=== PATIENT | male | born 1930 | race Caucasian/White ===

== ENCOUNTER 2018-11-20 15:01 | Inpatient (IN) | payer MEDICARE ==
[~2018-11-20] VITALS: Ht 185.4 cm; Wt 97.5 kg
[2018-12-24] VITALS (12 sets, daily range): BP systolic 91–129; BP diastolic 48–83; PULSE 69–97; TEMP 97.3–98.5
[2018-12-24] MEDS ORDERED: FLOMAX 0.40.4 MG/CAP PO (03:35)
[2018-12-24] MEDS ORDERED: ZOCOR 20MG20 MG PO (03:36)
[2018-12-24] MEDS ORDERED: TYLENOL 325MG325 MG PO (03:37)
[2018-12-24] MEDS ORDERED: MULTIPLE VITAMI1 CAP PO (03:38)
[2018-12-24] MEDS ORDERED: MOTRIN 200200 MG/TAB PO (03:39)
[2018-12-24] MEDS ORDERED: ZYRTEC 10MG10 MG PO (05:48)
[2018-12-24] MEDS ORDERED: SINGULAIR 110 MG/TAB PO (05:48)
--- NOTE | 2018-12-24 11:35 | NUR ---
CATE met with the patient's (the patient was in surgery) to discuss a discharge plan. The patient lives in [place] with his . The patient has a walker and is independent with ADLs. The patient's PCP is Dr. Caal and patient receives medication from [facility] in [place] with no difficulties. The patient does not have advanced directives in the EMR but patient's did provide completed paperwork. SW make a copy and placed it in the patients chart. The patient's plan is to return home with . The patient has outpatient physical therapy set up in [place]. The patient's will provide transportation home. banking services clerk will continue to follow to ensure safe discharge.
--- NOTE | 2018-12-24 11:35 | NUR ---
Lying in bed, easily arousable when name called out. Rates pain 2/10 in right knee, explains it feels like it is stiff. Dressing to right knee held in place with MICHEL wrap, clean, dry, and intact. Provided patient with water. Patient denies further needs.
--- NOTE | 2018-12-24 14:27 | NUR ---
Sitting up in bed, awake and alert. Rates pain 2/10 in right knee. Dressing clean, dry, and intact. Family in room talking with the patient. Patient was able to eat small lunch without any difficulties. Denies further needs at this time.
--- NOTE | 2018-12-24 20:15 | NUR ---
Pt. laying in bed with at bedside. Pt. is A&OX3, assessment complete. IV to lt. forearm patent, IV fluids infusing per orders. Dressing to rt. knee cdi. Pt. reports pain at a 2 on pain scale at this time. Pt. denies further needs, call light within reach.
[2018-12-25 00:07] VITALS: BP 98/57; PULSE 83; TEMP 97.8
[2018-12-25 03:42] VITALS: BP 90/50; PULSE 76; TEMP 98.2
[2018-12-25] MEDS ORDERED: ASPI325T6 PO (06:00)
[2018-12-25] MEDS ORDERED: CELEBREX 200MG200 MG PO (06:00)
[2018-12-25] MEDS ORDERED: NORCO 325 MG-7.1 TAB PO (06:01)
[2018-12-25] MEDS ORDERED: ULTRAM 50MG TAB50 MG PO (06:01)
--- NOTE | 2018-12-25 06:47 | NUR ---
Report from Rk DAVILA>
[2018-12-25 07:15] LABS: HEMATOCRIT 29.9 % (42.0-52.0)
[2018-12-25 07:45] VITALS: BP 89/59; PULSE 73; TEMP 98.1
[2018-12-25 11:19] VITALS: BP 106/49; PULSE 74; TEMP 97.4
[2018-12-25 16:10] VITALS: BP 96/45; PULSE 74; TEMP 98.2
--- NOTE | 2018-12-25 19:40 | NUR ---
Pt. sitting up in bed with at bedside. Pt. is A&OX3, assessment complete. INT to lt. forearm patent. Pt. denies pain. Aquacell dressing to rt. knee, CDI. Pt. ambulated in the halls this evening with standby assist. Pt. denies other needs, call light within reach.
[2018-12-25 20:09] VITALS: BP 95/41; PULSE 68; TEMP 97.4
[2018-12-26 04:23] VITALS: BP 127/53; PULSE 62; TEMP 98.1
--- NOTE | 2018-12-26 05:12 | NUR ---
Pt. slept well through the night. Pt. remains A&OX3. INT to lt. forearm patent. Pt. denies pain or other needs, call light within reach.
[2018-12-26 06:53] LABS: HEMATOCRIT 29.9 % (42.0-52.0); HEMOGLOBIN 9.9 g/dl (13.5-18.0)
[2018-12-26 07:17] VITALS: BP 110/58; PULSE 60; TEMP 98.6
--- NOTE | 2018-12-26 08:41 | NUR ---
PT SITTING UP IN BED EATING BREAKFAST. PAIN WELL COTROLLED WITH PO MEDS. DRESSING TO RIGHT KNEE CDI. LENNIE MG IN TO SEE PATEINT THIS AM. SEE COMPUTER FOR ORDERS.
[2018-12-26 12:19] VITALS: BP 115/61; PULSE 65; TEMP 97.5
--- NOTE | 2018-12-26 14:04 | NUR ---
Upon discharge, spouse stated that she could not take patient home as it would not be safe. Spouse requested that patient transfer to [facility] swing bed. Worker made a referral and faxed clinical information. Dr Bobby Liriano accepts patient to swing bed on 12/27/18 and requests that Patient be at their hospital before Noon. Worker met with patient and spouse and advised of the above information. Dr Bobby Liriano will need a physician call at [phone] and nurse will need to give nurse to nurse call at [phone] on 12/27/18. Spouse states that she will transport in the morning.
[2018-12-26 16:14] VITALS: BP 123/64; PULSE 76; TEMP 97.2
[2018-12-26 21:01] VITALS: BP 115/57; PULSE 80; TEMP 98.7
--- NOTE | 2018-12-26 21:25 | NUR ---
AMBULATED WITH STAFF IN HALLWAY TO IPR AND BACK TO ROOM. DENIES NEED FOR PAIN MEDS AT THIS TIME.
--- NOTE | 2018-12-26 22:15 | NUR ---
Reports right knee pain 5/10, medicated with [place] 7.5mg 2 tabs po at this time. Spouse remains at bedside. New ice pack applied to right knee, Aquacel drsg intact.
--- NOTE | 2018-12-27 00:30 | NUR ---
Patient resting well, no concerns offered at this time.
[2018-12-27 00:59] VITALS: BP 119/64; PULSE 81; TEMP 98.7
[2018-12-27 03:29] VITALS: BP 110/50; PULSE 67; TEMP 97.8
[2018-12-27 07:38] VITALS: BP 119/72; PULSE 55; TEMP 98.3
--- NOTE | 2018-12-27 07:40 | NUR ---
Sitting up in bed, at bedside. Patient denies pain at this time. Right knee and leg with swelling. Ice applied. Timoteo hose on bilaterally. Patient says that he will be leaving today to go to [facility] bed [facility] and that he will need to leave here by 1000. Patient denies further needs at this time.
[2018-12-27 08:00] VITALS: BP 110/61; PULSE 79; TEMP 98.1
[2018-12-27 08:47] VITALS: BP 110/61; PULSE 79; TEMP 98.1
--- NOTE | 2018-12-27 08:56 | NUR ---
pt has fine crackles on left lower lobe due to chronic interstitial lung disease.
--- NOTE | 2018-12-27 09:20 | NUR ---
Report called to Cathy at [facility]. Explained that the patient's will be driving him to their facility.
--- NOTE | 2018-12-27 09:38 | NUR ---
Patient escorted out to POV via wheelchair. All personal belongings returned to patient. Patient's will be driving patient to [facility]. Discharge paperwork provided to patient and his to give to nursing staff at [facility].
--- NOTE | 2018-12-27 09:46 | NUR ---
Initial visit; Patient thanked [employer] for looking in on him and joining him in prayer. [employer] offered encouragement and God's blessings.
--- NOTE | 2018-12-27 10:56 | NUR ---
The patient is to discharge today, 12/27 to [facility] . The patient's will transport the patient. SW faxed discharge orders. There are no additional needs at this time.
== END 2018-12-27 09:40 | disposition swing bed (61) | DRG 470 ==
LOC: JCC 12-24 05:11
PROVIDERS: Physician Assistant; ADMIT Orthopaedic Surgery
PROC: 0SRC0J9 Replacement of Right Knee Joint with Synthetic Substitute, Cemented, Open Approach (ICD-10-PCS; principal; 2018-12-24 07:30)
DX: M17.11 Unilateral primary osteoarthritis, right knee (principal); Z96.642 Presence of left artificial hip joint
CPT/HCPCS: A4314; A9284; C1776; J0690; J1100; J1885; J2250; J2405; J2704; J3010; J7120; J7121